=== PATIENT | male | born 1985 | race Two or more races ===

== ENCOUNTER 2021-01-24 18:06 | Emergency (ER) | payer OTHER, SELFPAY ==
[~2021-01-24] VITALS: Ht 165.1 cm; Wt 91.3 kg
[2021-01-24 18:34] VITALS: BP 132/85
[2021-01-24] MEDS ORDERED: KETOROLAC 30 MG/1 ML IM ONE (19:00)
[2021-01-24] MEDS ORDERED: CYCLOBENZAPRINE 10 MG TABLET PO ONE (19:00)
[2021-01-24] MEDS ORDERED: KETOROLAC 30 MG/1 ML ONE (19:57)
[2021-01-24] MEDS ORDERED: CYCLOBENZAPRINE 10 MG TABLET ONE (19:57)
== END 2021-01-24 20:43 | disposition home or self-care (01) ==
LOC: ED 19:00
DX: S16.1XXA Strain of muscle, fascia and tendon at neck level, initial encounter (principal); V49.49XA Driver injured in collision with other motor vehicles in traffic accident, initial encounter; Y93.89 Activity, other specified; Y92.410 Unspecified street and highway as the place of occurrence of the external cause; Y99.8 Other external cause status
CPT/HCPCS: 96372; 99283; J1885